=== PATIENT | male | born 1995 | race African-American/Black ===

== ENCOUNTER 2022-05-25 00:49 | Emergency (ER) | payer OTHER ==
[~2022-05-25] VITALS: Ht 172.7 cm; Wt 93.0 kg
[2022-05-25 00:57] VITALS: BP 122/74
--- NOTE | 2022-05-25 01:00 | NUR ---
TO LOBBY A/W BED AMBULATORY
--- NOTE | 2022-05-25 01:29 | NUR ---
PT TAKEN TO BED 12
--- NOTE | 2022-05-25 03:01 | NUR ---
Dr. Hamilton examining patient.
[2022-05-25] MEDS ORDERED: ROBAC PO (03:49)
[2022-05-25] MEDS ORDERED: TAM75 PO (03:49)
[2022-05-25 04:16] VITALS: BP 117/81
--- NOTE | 2022-05-25 04:16 | NUR ---
Patient discharged with v/s stable. Written and verbal after care instructions given and explained Influenza. Patient alert, oriented and verbalized understanding of instructions. Ambulatory with steady gait. All questions addressed prior to discharge. ID band removed. Patient advised to follow up with PMD. Rx of Codeine Phosphate/Guaifenesi and Tamiflu given. Patient educated on indication of medication including possible reaction and side effects. Opportunity to ask questions provided and answered.
== END 2022-05-25 04:16 | disposition home or self-care (01) ==
LOC: MED 00:49
DX: J11.1 Influenza due to unidentified influenza virus with other respiratory manifestations (principal); Z20.822 Contact with and (suspected) exposure to COVID-19; R07.9 Chest pain, unspecified; R05.9 Cough, unspecified; J45.909 Unspecified asthma, uncomplicated; Z79.899 Other long term (current) drug therapy
CPT/HCPCS: 71045; 87426; 87804; 93005; 99285; Q0092

== ENCOUNTER 2022-06-09 01:44 | Emergency (ER) | payer OTHER ==
[~2022-06-09] VITALS: Ht 172.7 cm; Wt 90.7 kg
[2022-06-09 01:44] VITALS: BP 140/90
[~2022-06-09 01:44] MED LIST: ROBAC PO; TAM75 PO
--- NOTE | 2022-06-09 07:28 | NUR ---
pt in triage, ambulatory w steady gait, Dr Cheng examining pt at this time.
[2022-06-09] MEDS ORDERED: methocarbamoL 500 MG TAB PO STA (07:34)
[2022-06-09] MEDS ORDERED: KETOROLAC 15 MG/ML VIAL IM ONE (07:35)
[2022-06-09] MEDS ORDERED: ACETAMINOPHEN 325 MG TAB PO ONE (07:35)
--- NOTE | 2022-06-09 07:35 | NUR ---
PT TAKEN TO XRAY VIA WC
--- NOTE | 2022-06-09 07:35 | NUR ---
pt to get xray via wc
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
[2022-06-09] MEDS ORDERED: METH-1681 PO (09:04)
[2022-06-09] MEDS ORDERED: IBUP-2213 PO (09:04)
[2022-06-09 09:10] VITALS: BP 124/88
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
== END 2022-06-09 09:10 | disposition home or self-care (01) ==
LOC: MED 01:44
DX: S89.82XA Other specified injuries of left lower leg, initial encounter (principal); M54.50 Low back pain, unspecified; J45.909 Unspecified asthma, uncomplicated; Z79.899 Other long term (current) drug therapy; V89.2XXA Person injured in unspecified motor-vehicle accident, traffic, initial encounter; Y93.89 Activity, other specified; Y92.89 Other specified places as the place of occurrence of the external cause; Y99.8 Other external cause status
CPT/HCPCS: 71045; 73562; 96372; 99284; J1885